=== PATIENT | male | born 1980 | race African-American/Black ===

== ENCOUNTER 2021-04-09 17:17 | Emergency (ER) | payer MEDICAID ==
[~2021-04-09] VITALS: Ht 157.5 cm; Wt 68.0 kg
[2021-04-09] MEDS ORDERED: KETOROLAC 60MG/2ML VIAL IM ONE (17:30)
[2021-04-09] MEDS ORDERED: METH-773 MT (17:59)
[2021-04-09] MEDS ORDERED: IBUP-2029 MT (17:59)
[2021-04-09 18:00] VITALS: BP 142/87
== END 2021-04-09 19:03 | disposition home or self-care (01) ==
LOC: ER 17:17
DX: M54.50 Low back pain, unspecified (principal); Z98.890 Other specified postprocedural states; Z88.0 Allergy status to penicillin
CPT/HCPCS: 96372; 99283; J1885